=== PATIENT | male | born 1950 | race Caucasian/White ===

== ENCOUNTER 2022-05-16 11:57 | Inpatient (IN) | payer MEDICARE ==
[~2022-05-16 11:57] MED LIST: Iopamidol-370 76% 500 ML 1 ML ONE
[2022-05-16] MEDS ORDERED: Bisacodyl 10 MG SUPP ONE (12:25)
[2022-05-16] MEDS ORDERED: Atropine Sulfate 1 mg/10 ml Syringe ONE (12:39)
[2022-05-16] MEDS ORDERED: EPINEPHrine 1 MG/10 ML Abboject SYRINGE ONE (12:40)
[2022-05-16] MEDS ORDERED: NOREPINEPHRINE 8 MG/250 ML-D5W 0 ML ONE (12:44)
[2022-05-16] MEDS ORDERED: NOREPINEPHRINE 8 MG/250 ML-D5W 250 ML ONE (12:45)
[2022-05-16 13:05] LABS: #Basophils 0.1 thou/uL (0.0-0.2); #Eosinphils 0.1 thou/uL (0.0-0.7); #Lymphocytes 1.8 thou/uL (1.20-3.40); #Monocytes 0.7 thou/uL (0.11-0.59); #Neutrophils 6.6 thou/uL (1.40-6.50); %Basophils 0.6 % (0.0-1.0); %Eosinophils 1.1 % (0.0-10.0); %Lymphocytes 19.3 % (21.0-51.0); %Monocytes 7.3 % (0.0-10.0); %Neutrophils 71.7 % (42.0-75.0); Hemoglobin 11.8 g/dL (14.0-18.0); Mean Corpuscular HGB CONC 31.4 g/dL (32.0-36.0); Mean Corpuscular Hemoglobin 31.5 pg (27.0-31.0); Mean Platelet Volume 6.9 fL (7.4-10.4); Platelet Count 250 thou/uL (130-400); RBC Distribution Width 12.4 % (11.5-14.5); Red Blood Cell (RBC) Count 3.76 mill/uL (4.70-6.10); White Blood Cell (WBC) Count 9.2 thou/uL (4.8-10.8)
[2022-05-16 13:24] LABS: ALT (SGPT) 14 U/L (8-55); AST (SGOT) 20 U/L (5-34); Albumin 3.8 g/dL (3.4-4.8); Alkaline Phosphatase 60 U/L (40-110); Anion Gap 18 mmol/L (10-20); BUN (Urea Nitrogen) 30 mg/dL (8.4-25.7); Bilirubin, Total 0.5 mg/dL (0.2-1.2); Calc. Creatinine Clearance 0 mL/min (70-130); Calcium 8.8 mg/dL (7.8-10.44); Carbon Dioxide 15 mmol/L (23-31); Chloride 110 mmol/L (98-107); Estimated GFR 46; Globulin 2.4 g/dL (2.4-3.5); Glucose 146 mg/dL (83-110); Potassium 5.3 mmol/L (3.5-5.1); Protein, Total 6.2 g/dL (5.8-8.1); Sodium 138 mmol/L (136-145)
[2022-05-16] MEDS ORDERED: Metoclopramide HCl 10 MG/2 ML VIAL ONE (13:31)
[2022-05-16] MEDS ORDERED: Ondansetron PF 4 MG/2 ML Vial ONE (14:10)
[2022-05-16 14:53] LABS: SARS-CoV-2 NAA Rapid Test Not Detected (NotDetected)
[2022-05-16] MEDS ORDERED: Piperacillin/Tazobactam 4.5 GM VIAL ONE (16:12)
[2022-05-16] MEDS ORDERED: Acetaminophen 325 MG TAB PO PRN (16:23)
[2022-05-16] MEDS ORDERED: Senokot S 8.6-50 MG TAB PO PRN (16:23)
[2022-05-16] MEDS ORDERED: Bisacodyl 10 MG SUPP PR PRN (16:23)
[2022-05-16] MEDS ORDERED: Ondansetron PF 4 MG/2 ML Vial IVP PRN (16:23)
[2022-05-16 18:18] VITALS: BMI 30.2
[2022-05-16 18:42] LABS: Bilirubin Negative (Negative); Blood, Urine Negative (Negative); Clarity Clear (Clear); Glucose, Urine (Dipstick) Normal (Negative); Ketone, Urine Negative (Negative); Leukocyte Negative Leu/uL (Negative); Nitrite Negative (Negative); Protein, Urine (Dipstick) 10 mg/dL (Neg-Trace); RBC/HPF 0-3 HPF (0-3); Squamous Epithelial 0-3 HPF (0-3); Urobilinogen Normal mg/dL (Less than 2)
[2022-05-16 19:02] LABS: Bacteria/HPF Rare-Few HPF (None Seen); Specific Gravity, Urine 1.046 (1.002-1.036)
[2022-05-16 19:04] LABS: Urine Culture Reflex Yes Yes
[2022-05-16] MEDS: Sodium Bicarbonate 150 MEQ in Dextrose 5% in Water 1,000 ML IV SCH (19:30)
[2022-05-16] MEDS: Ketorolac Tromethamine 30 MG/ML VIAL IVP PRN (19:41)
[2022-05-16] MEDS: Famotidine 20 MG TAB PO SCH (20:56)
[2022-05-16] MEDS: Famotidine/PF 20 mg/2ml Vial SLOW IVP SCH (21:00)
[2022-05-16] MEDS: metroNIDAZOLE 500 MG in Premix Bag 1 BAG IVPB SCH (21:05)
[2022-05-17 05:00] LABS: #Lymphocytes 0.6 thou/uL (1.20-3.40); #Monocytes 0.6 thou/uL (0.11-0.59); #Neutrophils 4.5 thou/uL (1.40-6.50); %Basophils 0.1 % (0.0-1.0); %Eosinophils 0.2 % (0.0-10.0); %Monocytes 10.3 % (0.0-10.0); %Neutrophils 78.5 % (42.0-75.0); Hemoglobin 10.3 g/dL (14.0-18.0); Mean Corpuscular HGB CONC 32.8 g/dL (32.0-36.0); Mean Corpuscular Volume 97.6 fL (78.0-98.0); Mean Platelet Volume 6.7 fL (7.4-10.4); Platelet Count 186 thou/uL (130-400); RBC Distribution Width 12.4 % (11.5-14.5); Red Blood Cell (RBC) Count 3.21 mill/uL (4.70-6.10); White Blood Cell (WBC) Count 5.7 thou/uL (4.8-10.8)
[2022-05-17 05:10] LABS: Anion Gap 12 mmol/L (10-20); BUN (Urea Nitrogen) 31 mg/dL (8.4-25.7); Calc. Creatinine Clearance 66 mL/min (70-130); Calcium 8.6 mg/dL (7.8-10.44); Carbon Dioxide 24 mmol/L (23-31); Chloride 106 mmol/L (98-107); Estimated GFR 51; Glucose 136 mg/dL (83-110); Potassium 4.3 mmol/L (3.5-5.1); Sodium 138 mmol/L (136-145)
[2022-05-17] MEDS: Sodium Bicarbonate 150 MEQ in Dextrose 5% in Water 1,000 ML IV SCH (05:20)
[2022-05-17] MEDS: metroNIDAZOLE 500 MG in Premix Bag 1 BAG IVPB SCH ×3 (05:20→21:35)
[2022-05-17] MEDS: Levothyroxine 150 MCG TAB PO SCH (05:21)
[2022-05-17] MEDS ORDERED: Loperamide HCl 2 MG CAP PO PRN (06:03)
[2022-05-17] MEDS: Famotidine 20 MG TAB PO SCH ×2 (09:08→20:36)
[2022-05-17] MEDS: Atorvastatin Calcium 40 MG TAB PO SCH (09:08)
[2022-05-17] MEDS: Enoxaparin Sodium 40 MG/0.4 ML SYRINGE SC SCH (09:08)
[2022-05-17] MEDS: Aspirin Chewable 81 MG TAB PO SCH (09:08)
[2022-05-17] MEDS: Polyethylene Glycol 3350 17 GM Packet PO SCH (09:09)
[2022-05-17] MEDS: Famotidine/PF 20 mg/2ml Vial SLOW IVP SCH ×2 (09:09→21:31)
[2022-05-17] MEDS: HYDROcodone/Acetaminophen 5/325 mg Tablet PO PRN ×2 (17:18→21:29)
[2022-05-17] MEDS: Ketorolac Tromethamine 30 MG/ML VIAL IVP PRN (22:43)
[2022-05-18 04:08] LABS: #Eosinphils 0.2 thou/uL (0.0-0.7); #Lymphocytes 0.8 thou/uL (1.20-3.40); #Monocytes 0.5 thou/uL (0.11-0.59); %Basophils 0.4 % (0.0-1.0); %Eosinophils 2.8 % (0.0-10.0); %Lymphocytes 14.3 % (21.0-51.0); %Neutrophils 73.4 % (42.0-75.0); Hemoglobin 9.9 g/dL (14.0-18.0); Mean Corpuscular HGB CONC 32.9 g/dL (32.0-36.0); Mean Corpuscular Hemoglobin 32.1 pg (27.0-31.0); Mean Corpuscular Volume 97.4 fL (78.0-98.0); Mean Platelet Volume 6.7 fL (7.4-10.4); Platelet Count 183 thou/uL (130-400); RBC Distribution Width 12.4 % (11.5-14.5); Red Blood Cell (RBC) Count 3.07 mill/uL (4.70-6.10); White Blood Cell (WBC) Count 5.4 thou/uL (4.8-10.8)
[2022-05-18 04:23] LABS: Anion Gap 11 mmol/L (10-20); BUN (Urea Nitrogen) 17 mg/dL (8.4-25.7); Calc. Creatinine Clearance 89 mL/min (70-130); Calcium 8.4 mg/dL (7.8-10.44); Carbon Dioxide 27 mmol/L (23-31); Chloride 104 mmol/L (98-107); Estimated GFR 73; Glucose 115 mg/dL (83-110); Potassium 3.8 mmol/L (3.5-5.1); Sodium 138 mmol/L (136-145)
[2022-05-18] MEDS: metroNIDAZOLE 500 MG in Premix Bag 1 BAG IVPB SCH ×3 (07:06→22:07)
[2022-05-18] MEDS: Levothyroxine 150 MCG TAB PO SCH (07:06)
[2022-05-18] MEDS: Atorvastatin Calcium 40 MG TAB PO SCH (07:19)
[2022-05-18] MEDS: Famotidine 20 MG TAB PO SCH ×2 (07:19→19:21)
[2022-05-18] MEDS: Enoxaparin Sodium 40 MG/0.4 ML SYRINGE SC SCH (07:19)
[2022-05-18] MEDS: Aspirin Chewable 81 MG TAB PO SCH (07:19)
[2022-05-18] MEDS: Famotidine/PF 20 mg/2ml Vial SLOW IVP SCH (07:20)
[2022-05-18] MEDS: Polyethylene Glycol 3350 17 GM Packet PO SCH (07:20)
[2022-05-18] MEDS: Sodium Chloride 0.9% 1,000 ML IV SCH (19:20)
[2022-05-18] MEDS: Ketorolac Tromethamine 30 MG/ML VIAL IVP PRN (23:41)
[2022-05-19 03:55] LABS: #Eosinphils 0.2 thou/uL (0.0-0.7); #Monocytes 0.5 thou/uL (0.11-0.59); #Neutrophils 3.5 thou/uL (1.40-6.50); %Basophils 0.1 % (0.0-1.0); %Eosinophils 3.9 % (0.0-10.0); %Lymphocytes 20.1 % (21.0-51.0); %Monocytes 8.7 % (0.0-10.0); %Neutrophils 67.3 % (42.0-75.0); Hemoglobin 9.7 g/dL (14.0-18.0); Mean Corpuscular HGB CONC 33.8 g/dL (32.0-36.0); Mean Corpuscular Hemoglobin 33.1 pg (27.0-31.0); Mean Platelet Volume 6.8 fL (7.4-10.4); Platelet Count 178 thou/uL (130-400); RBC Distribution Width 11.9 % (11.5-14.5); Red Blood Cell (RBC) Count 2.94 mill/uL (4.70-6.10); White Blood Cell (WBC) Count 5.2 thou/uL (4.8-10.8)
[2022-05-19 04:12] LABS: Anion Gap 10 mmol/L (10-20); BUN (Urea Nitrogen) 17 mg/dL (8.4-25.7); Calc. Creatinine Clearance 91 mL/min (70-130); Calcium 8.8 mg/dL (7.8-10.44); Carbon Dioxide 26 mmol/L (23-31); Chloride 107 mmol/L (98-107); Estimated GFR 75; Glucose 95 mg/dL (83-110); Potassium 3.8 mmol/L (3.5-5.1); Sodium 139 mmol/L (136-145)
[2022-05-19] MEDS: metroNIDAZOLE 500 MG in Premix Bag 1 BAG IVPB SCH ×3 (05:11→21:09)
[2022-05-19] MEDS: Sodium Chloride 0.9% 1,000 ML IV SCH (05:11)
[2022-05-19] MEDS: Levothyroxine 150 MCG TAB PO SCH (05:11)
[2022-05-19] MEDS: Aspirin Chewable 81 MG TAB PO SCH (09:23)
[2022-05-19] MEDS: Famotidine 20 MG TAB PO SCH ×2 (09:24→20:10)
[2022-05-19] MEDS: Polyethylene Glycol 3350 17 GM Packet PO SCH (09:24)
[2022-05-19] MEDS: Enoxaparin Sodium 40 MG/0.4 ML SYRINGE SC SCH (09:24)
[2022-05-19] MEDS: Atorvastatin Calcium 40 MG TAB PO SCH (09:26)
[2022-05-20] MEDS: Ketorolac Tromethamine 30 MG/ML VIAL IVP PRN (04:41)
[2022-05-20] MEDS: metroNIDAZOLE 500 MG in Premix Bag 1 BAG IVPB SCH (06:14)
[2022-05-20] MEDS: Levothyroxine 150 MCG TAB PO SCH (06:14)
[2022-05-20] MEDS ORDERED: Lisinopril 20 MG TAB PO SCH (09:00)
[2022-05-20] MEDS: Famotidine 20 MG TAB PO SCH (09:07)
[2022-05-20] MEDS: Aspirin Chewable 81 MG TAB PO SCH (09:07)
[2022-05-20] MEDS: Enoxaparin Sodium 40 MG/0.4 ML SYRINGE SC SCH ×2 (09:08→09:17)
[2022-05-20] MEDS: Atorvastatin Calcium 40 MG TAB PO SCH (09:08)
[2022-05-20] MEDS: Polyethylene Glycol 3350 17 GM Packet PO SCH (09:10)
[2022-05-20 11:52] VITALS: BP 171/95
[2022-05-20 12:06] VITALS: TEMP 97.9
== END 2022-05-20 13:47 | disposition home or self-care (01) | DRG 391 ==
LOC: ERS 11:57 → IMCU/EMU 16:27
PROVIDERS: ADMIT Hospitalist; ATTEND Family Medicine
PROC: 3E033XZ Introduction of Vasopressor into Peripheral Vein, Percutaneous Approach (ICD-10-PCS; principal; 2022-05-16)
DX: K52.9 Noninfective gastroenteritis and colitis, unspecified (principal); R57.1 Hypovolemic shock; K56.7 Ileus, unspecified; N17.9 Acute kidney failure, unspecified; E87.20 Acidosis, unspecified; M25.521 Pain in right elbow; I10 Essential (primary) hypertension; E11.9 Type 2 diabetes mellitus without complications; E66.01 Morbid (severe) obesity due to excess calories; R00.1 Bradycardia, unspecified
CPT/HCPCS: 36415; 36416; 36556; 71045; 71275; 74177; 80048; 80053; 81001; 84484; 85025; 86140; 87086; 93005; 93306; 96365; 96366; 96368; 96375; J0171; J0461; J0744; J1650; J1885; J2405; J2543; J2765; J7050; J7070; Q9967; S0028

== ENCOUNTER 2022-05-27 09:24 | Outpatient (CLI) | payer MEDICARE | END 2022-05-27 09:25 | disposition home or self-care (01) | LOC: RAD-FRANK 09:24 | PROVIDERS: ATTEND Nurse Practitioner Family | DX: R06.02 Shortness of breath (principal) | CPT/HCPCS: 71046 ==